=== PATIENT | male | born 1985 | race Two or more races ===

== ENCOUNTER 2020-04-10 23:52 | Emergency (ER) | payer OTHER ==
[~2020-04-10] VITALS: Ht 165.1 cm; Wt 117.9 kg
[2020-04-11] MEDS ORDERED: PREDNISOLO15 MG/5 ML PO (03:03)
[2020-04-11] MEDS ORDERED: [UNRECOGNIZED DRUG - OTHER] PO (03:03)
== END 2020-04-11 03:10 | disposition home or self-care (01) ==
LOC: ER 23:52
DX: L23.9 Allergic contact dermatitis, unspecified cause (principal)